=== PATIENT | male | born 1950 | race Caucasian/White ===

== ENCOUNTER 2017-11-20 01:28 | Emergency (ER) | payer MEDICARE, BC ==
[~2017-11-20] VITALS: Ht 175.3 cm; Wt 103.0 kg
[~2017-11-20 01:28] MED LIST: ACE3 PO; AMOX-556 PO; ARTHRITIS MED; CELE-1 PO; CEP500 PO; CHOL10005 PO; CIPR-344 PO; DEXL60CA6 PO; DOCU100T13 PO; ESOM20CA31; ESOM20CA31 PO; GLUC-198 PO; HYDR-3087 PO; HYDR-385 PO; HYDR-6018 RC; KET10 PO; LANS30CA63 PO; LANS30TA12 PO; LEVO-85 PO; LEVO50TA86 PO; LEVO75TA68 PO; LEVO75TA76; LOR5/325 PO; MAGN400C PO; MAGN400T36 PO; MELO-149; MELO-150 PO; MELO-205 PO; MELO-207 PO; METR-160 PO; MULT-1104; MULT-977 PO; MULT1CAP59 PO; OXYC-865 PO; PNEI IJ; PNEU0.5D3 IM; POLY17PO25 PO; PRED-1 PO; PREVPACPT PO; RANI-375 PO; SILD100T59 PO; TADA20TA33 PO; TRA50 PO; TRAM-420 PO; TRIA10.8; WARF2.5T4 PO; ZOST19404 SQ
[2017-11-20] MEDS ORDERED: ONDANSETRON 4 MG/2 ML VIAL IVP ONE (01:45)
[2017-11-20] MEDS ORDERED: fentaNYL CITR 100 MCG/2 ML AMP IVP ONE (01:45)
[2017-11-20] MEDS ORDERED: AMOX-559 PO (01:50)
[2017-11-20] MEDS ORDERED: IOPAMIDOL 76% 75 ML INFUS BTL 75 ML ONE (01:55)
[2017-11-20] MEDS ORDERED: NS 0.9% ONE (01:55)
--- NOTE | 2017-11-20 02:14 | ER Report ---
History and Physical Time Seen By MD: 02:10 Hx. of Stated Complaint: PATIENT HAS HAD A FISTULA FOR A COUPLE YEARS; FOR THE PAST TWO WEEKS IT HAS BEEN BOTHERING THE PATIENT AND HAS BEEN OOZING AND IS PAINFUL HPI/ROS CHIEF COMPLAINT: Pain in my butt HISTORY OF PRESENT ILLNESS: 61-year-old with colorectal cancer presents with pain and discomfort in the gluteal cleft ongoing over 3 weeks has tried multiple rounds of antibiotics most recently on Augmentin does not seem to be resolving increased pain and drainage today prompting ED visit location is superior aspect of gluteal cleft. No prior Pilon deal cyst. This told previously by GI specialist this may be a fistula. Surgical options have been discussed but currently managed nonsurgically. Drainage has been clear fluid. No fevers chills nausea or vomiting or diarrhea. Stools have been loose and irregular due to being on multiple rounds of antibiotics per patient report. No other concerns or complaints today. REVIEW OF SYSTEMS: Constitutional: No fever, no chills. Eyes: No discharge. ENT: No sore throat. Cardiovascular: No chest pain, no palpitations. Respiratory: No cough, no shortness of breath. Gastrointestinal: No abdominal pain, no vomiting. Genitourinary: No hematuria. Musculoskeletal: No back pain. Skin: No rashes. Neurological: No headache. Allergies: Uncoded Allergies: HAYFEVER (Allergy, Mild, UNKNOWN, 03/27/12) Home Meds Active Scripts Metronidazole (METRONIDAZOLE) 500 Mg Tablet, 500 MG PO TID, #15 TAB Prov:AYUSH MORALES MD 11/07/17 Sildenafil Citrate (VIAGRA) 100 Mg Tablet, 100 MG PO QDAY Y for sex, #9 TAB 4 Refills Prov:AYUSH MORALES MD 05/31/17 Lansoprazole (PREVACID) 30 Mg Tab.rap, 30 MG PO QAM, #90 TAB 4 Refills Prov:AYUSH MORALES MD 05/11/17 Levothyroxine Sodium (LEVOTHYROXINE SODIUM) 50 Mcg Tablet, 1 TAB PO QDAY, #90 TAB 4 Refills Prov:AYUSH MORALES MD 04/03/17 Meloxicam (MELOXICAM) 15 Mg Tablet, 1 TAB PO QDAY, #90 TAB 4 Refills Prov:AYUSH MORALES MD 4/7/17 Reported Medications Amoxicillin/Pot Clav 875-125 Mg Tab (AUGMENTIN 875-125 TABLET) 1 Each Tablet, 1 TAB PO Q12H, TAB 11/20/17 Ranitidine Hcl (ZANTAC 75) 75 Mg Tablet, 1 TAB PO QHS 04/03/17 Magnesium Oxide (MAGNESIUM OXIDE) 400 Mg Tablet, 400 MG PO QDAY 09/21/16 Polyethylene Glycol 3350 (MIRALAX) 17 Gm Powd.pack, 17 GM PO QDAY Y for constipation, PKT 08/17/16 Docusate Sodium (DOCUSATE SODIUM) 100 Mg Tablet, 100 MG PO QDAY 08/11/16 Multivitamin (MULTIVITAMINS) 1 Each Capsule, 1 EACH PO QDAY, CAPSULE 03/17/16 Cholecalciferol (Vitamin D3) (VITAMIN D3) 1,000 Unit Tablet, 1 TAB PO QDAY 11/03/14 Discontinued Scripts Ciprofloxacin Hcl (CIPRO) 500 Mg Tablet, 500 MG PO BID, #10 TAB Prov:AYUSH MORALES MD 11/07/17 Tramadol Hcl (TRAMADOL HCL) 50 Mg Tablet, 50 MG PO BID Y for pain, #20 TAB Prov:AYUSH MORALES MD 05/10/17 Hx Smoking: No Smoking Status: Never Smoker Hx Substance Use Disorder: No Hx Alcohol Use: No Constitutional Vital Sign - Last 24 Hours 11/20/17 11/20/17 11/20/17 11/20/17 01:34 01:35 01:58 02:10 Temp 98.7 Pulse 86 84 Resp 18 B/P (MAP) 118/59 118/59 (78) 89/47 (61) Pulse Ox 92 93 O2 Delivery Room Air 11/20/17 11/20/17 11/20/17 11/20/17 02:28 02:30 02:58 03:00 Pulse 69 66 B/P (MAP) 107/59 (75) 121/70 (87) Pulse Ox 95 96 11/20/17 03:05 O2 Flow Rate 2.0 Physical Exam General Appearance: The patient is alert, has no immediate need for airway protection and no signs of toxicity. No acute distress Eyes: Pupils equal and round no pallor or injection. ENT, Mouth: Mucous membranes are moist. Respiratory: There are no retractions, lungs are clear to auscultation. Cardiovascular: Regular rate and rhythm. Hours gallops or rubs Gastrointestinal: Abdomen is soft and non tender, no masses, bowel sounds normal. Neurological: Grossly normal Skin: Warm and dry, no rashes. Superior gluteal cleft has read appearance with tenderness and minimal fluctuance. Serosanguineous drainage is apparent. Musculoskeletal: Neck is supple non tender. Extremities are nontender, nonswollen and have full range of motion. Edema DIFFERENTIAL DIAGNOSIS: After history and physical exam differential diagnosis was considered for pilonidal cyst pilonidal cyst abscess colorectal cancer related fistula no signs of sepsis or other serious process Medical Decision Making Data Points Result Diagram: 11/20/1720811/20/17 020 Laboratory Hematology Test 11/20/17 02:09 Red Blood Count 4.74 M/uL (4.00-5.60) Mean Corpuscular Volume 88.1 fL (80.0-96.0) Mean Corpuscular Hemoglobin 29.7 pg (26.0-33.0) Mean Corpuscular Hemoglobin Concent 33.7 g/dL (32.0-36.0) Red Cell Distribution Width 13.9 % (11.5-14.5) Mean Platelet Volume 8.2 fL (7.2-11.1) Neutrophils (%) (Auto) 67.2 % (39.4-72.5) Lymphocytes (%) (Auto) 17.7 % (17.6-49.6) Monocytes (%) (Auto) 11.5 % (4.1-12.4) Eosinophils (%) (Auto) 3.0 % (0.4-6.7) Basophils (%) (Auto) 0.6 % (0.3-1.4) Nucleated RBC Relative Count (auto) 0.0 /100WBC Neutrophils # (Auto) 3.6 K/uL (2.0-7.4) Lymphocytes # (Auto) 0.9 K/uL (1.3-3.6) Monocytes # (Auto) 0.6 K/uL (0.3-1.0) Eosinophils # (Auto) 0.2 K/uL (0.0-0.5) Basophils # (Auto) 0.0 K/uL (0.0-0.1) Nucleated RBC Absolute Count (auto) 0.00 K/uL Sodium Level 137 mmol/L (137-145) Potassium Level 4.0 mmol/L (3.5-5.0) Chloride Level 102 mmol/L (98-107) Carbon Dioxide Level 26 mmol/L (22-30) Blood Urea Nitrogen 18 mg/dl (9-21) Creatinine 1.00 mg/dl (0.66-1.25) Glomerular Filtration Rate Calc > 60.0 Random Glucose 114 mg/dl (75-110) Calcium Level 8.5 mg/dl (8.4-10.2) C-Reactive Protein 2.2 mg/dl (<1.0) Chemistry Test 11/20/17 02:09 White Blood Count 5.3 k/uL (4.5-11.0) Red Blood Count 4.74 M/uL (4.00-5.60) Hemoglobin 14.1 g/dL (14.0-18.0) Hematocrit 41.7 % (42.0-52.0) Mean Corpuscular Volume 88.1 fL (80.0-96.0) Mean Corpuscular Hemoglobin 29.7 pg (26.0-33.0) Mean Corpuscular Hemoglobin Concent 33.7 g/dL (32.0-36.0) Red Cell Distribution Width 13.9 % (11.5-14.5) Platelet Count 221 K/uL (150-450) Mean Platelet Volume 8.2 fL (7.2-11.1) Neutrophils (%) (Auto) 67.2 % (39.4-72.5) Lymphocytes (%) (Auto) 17.7 % (17.6-49.6) Monocytes (%) (Auto) 11.5 % (4.1-12.4) Eosinophils (%) (Auto) 3.0 % (0.4-6.7) Basophils (%) (Auto) 0.6 % (0.3-1.4) Nucleated RBC Relative Count (auto) 0.0 /100WBC Neutrophils # (Auto) 3.6 K/uL (2.0-7.4) Lymphocytes # (Auto) 0.9 K/uL (1.3-3.6) Monocytes # (Auto) 0.6 K/uL (0.3-1.0) Eosinophils # (Auto) 0.2 K/uL (0.0-0.5) Basophils # (Auto) 0.0 K/uL (0.0-0.1) Nucleated RBC Absolute Count (auto) 0.00 K/uL Glomerular Filtration Rate Calc > 60.0 Calcium Level 8.5 mg/dl (8.4-10.2) C-Reactive Protein 2.2 mg/dl (<1.0) ED Course/Re-evaluation ED Course Plan of care was agreed upon prior to orders placed. Re-evaluation 11/20/2017 3:18:26 am patient doing fine no concerns or complaints radiologist called back no drainable fluid collection possible fistula with overlying inflammatory skin changes we'll continue current course of antibiotics [augmentin] add topical hydrocortisone; pt states has tramadol left over and will use for pain; and follow-up with Dr. Venegas for further evaluation and treatment Decision to Disposition Date: Nov 20, 2017 Decision to Disposition Time: 03:18 Depart Departure Latest Vital Signs Vital Signs Date Time Temp Pulse Resp B/P (MAP) Pulse Ox O2 Delivery O2 Flow Rate FiO2 11/20/17 03:05 2.0 11/20/17 03:00 121/70 (87) 11/20/17 02:58 66 96 11/20/17 01:34 98.7 18 Room Air Impression: Primary Impression: Skin infection Condition: Improved Disposition: HOME OR SELF-CARE Referrals: AYUSH MORALES MD (PCP) BRIDGET BRISENO MD New Scripts Hydrocortisone 2.5% Oint (HYDROCORTISONE 2.5% OINT) 453.6 Gm Oint...g. 453.6 GM TP BID for 10 Days, #1 TUBE Prov: BILL BULLOCK MD 11/20/17 Patient Instructions: Hydrocortisone (On the skin) BILL BULLOCK MD Nov 20, 2017 02:14
[2017-11-20 02:19] LABS: PLATELET COUNT, AUTOMATED 221 K/uL (150-450)
--- NOTE | 2017-11-20 03:20 | RADIOLOGY IMAGING REPORT ---
FACILITY: [facility] [place]IENT NAME: Dustin Tran : 1950 MR: [id number] V: [id number] EXAM DATE: ORDERING PHYSICIAN: BILL BULLOCK TECHNOLOGIST: Location: [facility] - [place] Patient: Dustin Tran : 1950 Visit/Account:[id number] Date of Sevice: 11/20/2017 ABDOMEN/PELVIS WITH CONTRAST COMPARISONS: CT of the abdomen and pelvis with without contrast dated August 16, 2016 ADDITIONAL PERTINENT HISTORY: Colorectal cancer with possible pilonidal cyst versus fistula TECHNIQUE: Multiple axial images were obtained from the lung bases through the lesser trochanters bef ore and after the IV administration of IV contrast. One of the following dose optimization technique s was utilized in the performance of this exam: Automated exposure control; adjustment of the mA and/ or kV according to the patient's size; or use of an iterative reconstruction technique. Specific de tails can be referenced in the facility's radiology CT exam operational policy. CONTRAST: 75 ml of Isovue-370 FINDINGS: Lung bases: Negative. Free air and free fluid: None. Liver: Mild biliary ductal dilatation likely related to previous cholecystectomy. Otherwise negative Spleen: Negative. Kidneys, ureters and urinary bladder: Continued findings of a low-attenuation lesion involving the up per pole of the right kidney consistent with a simple cyst. Adrenal glands: Negative. Pancreas: Negative. Gallbladder: Surgically absent. Bowel and mesentery: Postoperative changes involving the rectosigmoid colon. Continued findings of so ft tissue attenuation with foci of air posterior to the rectum within the presacral space. This has i ncreased in prominence since previous exam. No loculated fluid collection is noted. No bowel obstruct ion.. Pelvic contents: Negative Lymph node assessment: Negative. Retroperitoneum: Negative. Abdominal vasculature: Mild calcified atherosclerotic plaque involving the abdominal aorta. Surrounding soft tissues: Irregularity along the anterior abdominal wall just to the left of midline which may have represented a previous site of an ostomy. There is skin thickening and subcutaneous so ft tissue stranding in the right aspect of the gluteal cleft extending down into the presacral space. Osseous structures: Patient status post previous total left hip arthroplasty. Spondylitic change invo lving the lumbar spine. No acute appearing bony abnormalities. IMPRESSION: 1. Soft tissue fullness in the presacral space immediately adjacent to the posterior wall of the rect um with inflammatory changes extending into the right gluteal cleft. In addition within the presacral soft tissue fullness of there are foci of air. Findings certainly could represent underlying fistula with communication to the subcutaneous soft tissues. 2. No drainable abscess in this region. 3. Postoperative changes as discussed above. 4. No other acute intra-abdominal or intrapelvic process. Results were discussed with BILL BULLOCK at 11/20/2017 3:15 AM. Report Dictated By: Luis Alberto Hardin MD at 11/20/2017 3:05 AM Report E-Signed By: Luis Alberto Hardin MD at 11/20/2017 3:15 AM WSN:[id number]
[2017-11-20] MEDS ORDERED: HYDR453.8 TP (03:21)
[2017-11-20 03:23] VITALS: BP 120/72
== END 2017-11-20 03:29 | disposition home or self-care (01) ==
LOC: ER 01:58
DX: L08.89 Other specified local infections of the skin and subcutaneous tissue (principal)
CPT/HCPCS: 74177; 85025; 86140; 96374; 96375; 99284; J2405; J3010; Q9967; 82310; 82374; 82435; 82565; 82947; 84132; 84295; 84520

== ENCOUNTER 2017-11-29 13:35 | Outpatient (RCR) | payer MEDICARE, BC ==
[~2017-11-29 13:35] MED LIST changes: +AMOX-559 PO; +HYDR453.8 TP
[2017-11-30] MEDS ORDERED: GADOBENATE 529MG/1ML 15ML VIAL IVP ONE (08:10)
[2017-11-30] MEDS ORDERED: NS(*) 0.9% 10 ML VIAL 40 ML ONE (08:10)
--- NOTE | 2017-12-01 17:34 | RADIOLOGY IMAGING REPORT ---
FACILITY: PATIENT NAME: Dustin Tran : 1950 MR: [id number] V: [id number] EXAM DATE: ORDERING PHYSICIAN: [facility] [place] TECHNOLOGIST: Location: [facility] Patient: Dustin Tran : 1950 Visit/Account:[id number] Date of Sevice: 11/30/2017 PELVIS W W/O CONTRAST Provided history: Rectal fistula Additional pertinent history: none TECHNIQUE: Multiplanar multisequence MRI of the pelvis was performed without and with intravenous c ontrast Contrast dose: 15 mL of MultiHance. Additional focused sequences: none COMPARISON STUDIES: MRI 03/30/[address] 11/20/07 FINDINGS: Genitourinary: Negative Bowel/peritoneum/mesenteries: Reidentified is moderate circumferential thickening of the lower rectum . There is localized wall thickening from 5:00 to 7:00 as seen from below, 5.5 cm above the verge po inting toward the sacral concavity. There is moderately intense enhancement of the wall surrounding this focal posterior protrusion and there is abnormal enhancement along a sinus tract that extends wi thin the substance of the piriformis muscle caudally to the level of the tip of the coccyx. At that level, there is moderately intense focal soft tissue enhancement in the intergluteal cleft and there is moderate secondary edema in the adjacent gluteus abisai muscles. Another tract extends into the right piriformis muscle, also extending to the tip of the coccyx. Marrow appears to be preserved in the tip of the coccyx. No clear evidence of osteomyelitis. Vessels: negative Musculoskeletal / body wall: Left hip prosthesis. Moderate narrowing of the central canal lower lumb ar spine, not further assessed. Lymph nodes: negative IMPRESSION: There are 2 fistulae/sinus tracts arising from the posterior rectal wall as fully defined above that point caudally within the substance of the piriformis muscles extending to the intragluteal fold at t he level of the tip of the coccyx. There is no clear evidence of osteomyelitis on this exam. Report Dictated By: Max De La Cruz MD at 12/01/2017 5:15 PM Report E-Signed By: Max De La Cruz MD at 12/01/2017 5:30 PM WSN:[id number]
== END 2017-11-30 18:00 | disposition home or self-care (01) ==
LOC: MRI 13:35
PROVIDERS: ATTEND Colon & Rectal Surgery
DX: K63.2 Fistula of intestine (principal); K60.5 Anorectal fistula
CPT/HCPCS: 36415; 72197; 82565; 84520; A9577

== ENCOUNTER → 2017-12-25 | Outpatient (CLI) | payer MEDICARE, BC ==
--- NOTE | 2017-12-25 10:45 | RADIOLOGY IMAGING REPORT ---
FACILITY: [facility] - [place] PATIENT NAME: Dustin Tran : 1950 MR: [id number] V: [id number] EXAM DATE: ORDERING PHYSICIAN: FERNANDO DENTON TECHNOLOGIST: Location: [facility] [place] Patient: Dustin Tran : 1950 Visit/Account:[id number] Date of Sevice: 12/25/2017 Exam type: BARIUM ENEMA (BE) History: Rectal anastomosis with fistula Comparison: CT abdomen pelvis November 20, 2017. Findings: A small amount of Gastrografin was instilled into the colon via the rectum utilizing gravity. Gastro grafin immediately flowed from the posterior aspect of the rectum adjacent to a surgical clip at the anastomosis and tract in the gluteal soft tissues towards the skin. The entire colon was not evaluat ed. Incidentally noted is a large amount of fecal material throughout colon on the pulmonary container filler f ilm.. The fluoroscopy dose area product was 759.46 micro-Jordan per meter squared IMPRESSION: 1. There is immediate leakage of Gastrografin from the posterior aspect of the rectum adjacent to th e anastomosis which tract posteriorly into the gluteal soft tissues Report Dictated By: Nuris Meyers MD at 12/25/2017 10:31 AM Report E-Signed By: Nuris Meyers MD at 12/25/2017 10:42 AM WSN:[email or web address]
== END ==
LOC: RAD 09:58
PROVIDERS: ATTEND Colon & Rectal Surgery
DX: K60.5 Anorectal fistula (principal)
CPT/HCPCS: 74270

== ENCOUNTER 2018-01-25 03:56 | Day surgery (SDC) | payer MEDICARE, BC ==
[~2018-01-25] VITALS: Ht 175.3 cm; Wt 102.1 kg
[2018-01-25] MEDS ORDERED: LIDOCAINE MPF 1% 5 ML VIAL ONE (07:00)
[2018-01-25] MEDS ORDERED: PROPOFOL EMUL(*) 10MG/ML 20 ML 40 ML ONE (07:00)
[2018-01-25] MEDS ORDERED: LIDOCAINE/SOD BICARB 8.4% SYR ID ONE (07:40)
[2018-01-25] MEDS ORDERED: NORMOSOL R SOLN(*) 1000 ML BAG 1,000 ML IV PRN (07:40)
[2018-01-25 08:06] VITALS: BP 131/83
--- NOTE | 2018-01-25 08:10 | Post Operative Progress Note ---
Post Operative Progress Note Date: Jan 25, 2018 Time: 08:38 Surgeon: sunshine Anesthesia: dr weber Pre-Op Diagnosis: rectocutaneous fistula Post-Op Diagnosis: fistula opening at 8 cm and stiff stenotic segment up to 25 cm then normal colon Procedure(s): colonoscopy BRIDGET BRISENO MD Jan 25, 2018 08:10
[2018-01-25 08:38] VITALS: BP 108/64
--- NOTE | 2018-01-25 08:40 | Short(Outpt) Discharge Summary ---
Discharge Summary Reason for Hosp/Final Diag: (1) Rectal fistula Status: Acute Hospital Course & Plan: fistula opening at 8 cm and stenotic segment of colon up to 25 cm then normal colon Departure Discharge to: Home Discharge Instructions Home Meds Active Scripts Hydrocortisone 2.5% Oint (HYDROCORTISONE 2.5% OINT) 453.6 Gm Oint...g., 453.6 GM TP BID for 10 Days, #1 TUBE Prov:BILL BULLOCK MD 11/20/17 Sildenafil Citrate (VIAGRA) 100 Mg Tablet, 100 MG PO QDAY Y for sex, #9 TAB 4 Refills Prov:AYUSH MORALES MD 05/31/17 Lansoprazole (PREVACID) 30 Mg Tab.rap.dr, 30 MG PO QAM, #90 TAB 4 Refills Prov:AYUSH MORALES MD 05/11/17 Levothyroxine Sodium (LEVOTHYROXINE SODIUM) 50 Mcg Tablet, 1 TAB PO QDAY, #90 TAB 4 Refills Prov:AYUSH MORALES MD 04/03/17 Meloxicam (MELOXICAM) 15 Mg Tablet, 1 TAB PO QDAY, #90 TAB 4 Refills Prov:AYUSH MORALES MD 01/20/17 Reported Medications Ranitidine Hcl (ZANTAC 75) 75 Mg Tablet, 1 TAB PO QHS 04/03/17 Magnesium Oxide (MAGNESIUM OXIDE) 400 Mg Tablet, 400 MG PO QDAY 09/21/16 Polyethylene Glycol 3350 (MIRALAX) 17 Gm Powd.pack, 17 GM PO QDAY Y for constipation, PKT 08/17/16 Multivitamin (MULTIVITAMINS) 1 Each Capsule, 1 EACH PO QDAY, CAPSULE 03/17/16 Cholecalciferol (Vitamin D3) (VITAMIN D3) 1,000 Unit Tablet, 1 TAB PO QDAY 11/03/14 Discontinued Reported Medications Amoxicillin/Pot Clav 875-125 Mg Tab (AUGMENTIN 875-125 TABLET) 1 Each Tablet, 1 TAB PO Q12H, TAB 11/20/17 Docusate Sodium (DOCUSATE SODIUM) 100 Mg Tablet, 100 MG PO QDAY 08/11/16 Discontinued Scripts Metronidazole (METRONIDAZOLE) 500 Mg Tablet, 500 MG PO TID, #15 TAB Prov:AYUSH MORALES MD 11/07/17 Diet: Regular Activity: As Tolerated NACHTIGAL,BRIDGET MD Jan 25, 2018 08:40
[2018-01-25 09:07] VITALS: BP 103/53
[2018-01-25 09:24] VITALS: BP 127/76
[2018-01-25 09:25] VITALS: BP 133/72
--- NOTE | 2018-01-25 16:58 | OPERATIVE REPORT 1 ---
EVENT DATE: January 25, 2018 SURGEON: Rubin Hartman MD ANESTHESIOLOGIST: Toño Villafuerte MD ANESTHESIA: Sedation. PREOPERATIVE DIAGNOSIS Rectocutaneous fistula. POSTOPERATIVE DIAGNOSIS Rectocutaneous fistula. PROCEDURE PERFORMED Colonoscopy. DESCRIPTION OF PROCEDURE Patient was placed in the left lateral decubitus position and given intravenous sedation. Perianal examination revealed a fistula with granulation tissue in the midline posterior to the anal opening. There was some feculent material leaking out of it. The flexible colonoscope was inserted, and 7 cm up, he had a large crater with granulation tissue and the obvious site of the fistula. We were able to go by this and complete the colonoscopy. Patient had a poor prep, a lot of thick liquid stool with some particulate matter, making complete visualization impossible. However, we washed and irrigated out the cecum pretty well. We had a good look at that. No abnormalities were noted in the cecum, right colon. Transverse colon was seen pretty well. The splenic flexure was a little more difficult to see because of the liquid stool present. We suctioned as much as we could, cleared it out. I could not identify any abnormalities. The descending colon appeared to be normal. At 25 cm, he had a stenotic segment that extended about 10 cm, ending with the fistula opening. The lining of this mucosa appeared to be normal, but the bowel did not distend. It was a stiff tube from 25 cm to the fistula, and then the distal rectum was normal. The fistula opening to the anal verge was around 8 cm. [facility]
[2018-01-30] MEDS ORDERED: PNEI IJ (11:04)
== END 2018-01-25 09:43 | disposition home or self-care (01) ==
LOC: OR 03:56
PROVIDERS: ATTEND Surgery
DX: K60.4 Rectal fistula (principal)
CPT/HCPCS: 00811; 45378; J2001; J2704

== ENCOUNTER → 2018-01-30 | Outpatient (CLI) | payer MEDICARE, BC ==
[2018-01-30 11:40] LABS: PLATELET COUNT, AUTOMATED 230 K/uL (150-450)
--- NOTE | 2018-01-30 12:07 | EKG ---
FACILITY: [facility] PATIENT NAME: BREANNE CONNOR : [id number] MR: [id number] V: [id number] EXAM DATE: ORDERING PHYSICIAN: AYUSH MORALES TECHNOLOGIST: MARIBEL Blount Reason : PREOP Blood Pressure : / mmHG Vent. Rate : 080 BPM Atrial Rate : 080 BPM P-R Int : 156 ms QRS Dur : 100 ms QT Int : 396 ms P-R-T Axes : 074 000 037 degrees QTc Int : 456 ms Normal sinus rhythm Normal ECG When compared with ECG of 30-AUG-2016 07:35, No significant change was found Referred By: Confirmed By:
== END ==
LOC: LAB 11:09
PROVIDERS: ATTEND Internal Medicine
DX: Z01.818 Encounter for other preprocedural examination (principal); C18.9 Malignant neoplasm of colon, unspecified; E03.9 Hypothyroidism, unspecified; I10 Essential (primary) hypertension; K60.4 Rectal fistula; R73.9 Hyperglycemia, unspecified
CPT/HCPCS: 36415; 81001; 82040; 82247; 82310; 82374; 82435; 82565; 82947; 83036; 83735; 84075; 84132; 84155; 84295; 84443; 84450; 84460; 84520; 85025

== ENCOUNTER → 2018-10-17 | Outpatient (CLI) | payer MEDICARE, BC ==
[~2018-10-17] MED LIST changes: -METR-160 PO; +METR500T54 PO
[2018-10-17 15:33] LABS: PLATELET COUNT, AUTOMATED 269 K/uL (150-450)
--- NOTE | 2018-10-18 17:00 | EKG ---
[facility] PATIENT NAME: BREANNE CONNOR : [id number] MR: [id number] V: [id number] EXAM DATE: ORDERING PHYSICIAN: AYUSH MORALES TECHNOLOGIST: MIKEY Test Reason : PRE OP Blood Pressure : / mmHG Vent. Rate : 096 BPM Atrial Rate : 096 BPM P-R Int : 146 ms QRS Dur : 094 ms QT Int : 360 ms P-R-T Axes : 070 -09 048 degrees QTc Int : 454 ms Normal sinus rhythm Normal ECG No previous ECGs available Referred By: Confirmed By:
== END ==
LOC: LAB 14:42
PROVIDERS: ATTEND Internal Medicine
DX: Z01.818 Encounter for other preprocedural examination (principal); C18.9 Malignant neoplasm of colon, unspecified; E03.9 Hypothyroidism, unspecified; R35.1 Nocturia
CPT/HCPCS: 36415; 81001; 82040; 82247; 82310; 82374; 82435; 82565; 82947; 84075; 84132; 84153; 84155; 84295; 84439; 84443; 84450; 84460; 84520; 85025; 87088

== ENCOUNTER → 2019-04-30 | Outpatient (CLI) | payer MEDICARE, BC ==
[~2019-04-30] MED LIST changes: +CIPR-214 PO; +METR500T15 PO; -METR500T54 PO; -RANI-375 PO; +RANI-886 PO
[2019-04-30 09:07] LABS: PLATELET COUNT, AUTOMATED 179 K/uL (150-450)
== END ==
LOC: LAB 08:40
PROVIDERS: ATTEND Internal Medicine
DX: Z01.818 Encounter for other preprocedural examination (principal); C18.9 Malignant neoplasm of colon, unspecified; M19.90 Unspecified osteoarthritis, unspecified site; R73.9 Hyperglycemia, unspecified; E03.9 Hypothyroidism, unspecified
CPT/HCPCS: 36415; 81001; 82040; 82247; 82310; 82374; 82435; 82565; 82947; 84075; 84132; 84155; 84295; 84443; 84450; 84460; 84520; 85025

== ENCOUNTER 2019-05-27 04:05 | Observation (INO) | payer MEDICARE, BC ==
[2019-05-26 15:41] LABS: INR 1.04
[~2019-05-27] VITALS: Ht 175.3 cm; Wt 110.7 kg
[2019-05-27] VITALS (11 sets, daily range): BP systolic 98–144; BP diastolic 64–79
[~2019-05-27 04:05] MED LIST changes: +DOCU-416 PO; +FERR324T16 PO
[2019-05-27] MEDS ORDERED: ROPIVACAINE 0.2% 400 MG/200ML 250 ML CONINFUS ONE (06:15)
[2019-05-27] MEDS ORDERED: PREGABALIN 150 MG CAPSULE PO ONE (06:15)
[2019-05-27] MEDS ORDERED: MIDAZOLAM 2 MG/2 ML VIAL IVP PRN (06:15)
[2019-05-27] MEDS ORDERED: NORMOSOL R SOLN(*) 1000 ML BAG 1,000 ML IV PRN ×2 (06:15→10:40)
[2019-05-27] MEDS ORDERED: LIDOCAINE/SOD BICARB 8.4% SYR ID ONE (06:15)
[2019-05-27] MEDS ORDERED: CELECOXIB 200 MG CAP PO ONE (06:15)
[2019-05-27] MEDS ORDERED: ACETAMINOPHEN 500 MG TAB PO ONE (06:15)
[2019-05-27] MEDS ORDERED: ROPIVACAINE 0.5% 20 ML VIAL ONE ×2 (07:00→07:29)
[2019-05-27] MEDS ORDERED: ceFAZolin(*) 2GM/D5W 50ML 50 ML IVPB ONE (07:15)
[2019-05-27] MEDS ORDERED: TRANEXAMIC AC 1000 MG/10ML SDV 1,000 MG in DEXTROSE 5% 50 ML BAG 50 ML IV ONE (07:15)
[2019-05-27] MEDS ORDERED: ROPIVACAINE/EPI/CLONIDINE/KET 50 ML SYRINGE INJ ONE (07:15)
[2019-05-27] MEDS ORDERED: ONDANSETRON 4 MG/2 ML VIAL ONE (07:29)
[2019-05-27] MEDS ORDERED: PROPOFOL EMUL(*) 10MG/ML 20 ML 20 ML ONE (07:29)
[2019-05-27] MEDS ORDERED: DEXAMETHASONE SOD PHOS 10MG/ML ONE (07:29)
[2019-05-27] MEDS ORDERED: fentaNYL CITR 100 MCG/2 ML AMP ONE ×2 (07:29→09:48)
[2019-05-27] MEDS ORDERED: HYDROmorphone HCL 2 MG/ML SDV ONE (08:04)
[2019-05-27] MEDS ORDERED: ZOLPIDEM TARTRATE 5 MG TAB PO PRN (10:40)
[2019-05-27] MEDS ORDERED: PROMETHAZINE 25 MG/ML 1 ML AMP IVP PRN (10:40)
[2019-05-27] MEDS ORDERED: FLUSH 10 ML SYR IVP PRN (10:40)
[2019-05-27] MEDS ORDERED: BISACODYL 10 MG SUPP PR PRN (10:40)
[2019-05-27] MEDS ORDERED: oxyCODONE HCL 5 MG CAP PO PRN (10:40)
[2019-05-27] MEDS ORDERED: MORPHINE 4 MG/ML SDV IVP PRN (10:40)
[2019-05-27] MEDS ORDERED: ONDANSETRON 4 MG/2 ML VIAL IVP PRN (10:40)
[2019-05-27] MEDS ORDERED: MAGNESIUM HYDROXIDE* 30ML UDCP PO PRN (10:40)
--- NOTE | 2019-05-27 10:43 | RADIOLOGY IMAGING REPORT ---
FACILITY: [facility] - [place] PATIENT NAME: Dustin Tran : 1950 MR: [id number] V: [id number] EXAM DATE: ORDERING PHYSICIAN: LACEY WAYNE TECHNOLOGIST: Location: [facility] - [place] Patient: Dustin Tran : 1950 Visit/Account:[id number] Date of Sevice: 05/27/2019 Exam type: KNEE LIMITED LEFT History: left total knee Comparison: None. Findings: Two views of the left knee demonstrate a left knee arthroplasty in good anatomic alignment. Soft tis [employer] projects over the anterior aspect this postoperative knee IMPRESSION: 1. As above Report Dictated By: Nuris Meyers MD at 05/27/2019 10:27 AM Report E-Signed By: Nuris Meyers MD at 05/27/2019 10:27 AM WSN:[id number]
[2019-05-27] MEDS: IBUPROFEN 200 MG TAB PO SCH ×2 (12:54→17:27)
--- NOTE | 2019-05-27 13:42 | OPERATIVE REPORT 1 ---
EVENT DATE: May 27, 2019 SURGEON: Christo Qureshi MD ANESTHESIOLOGIST: Nakul Vernon MD ANESTHESIA: Left adductor canal block with indwelling catheter followed by general anesthesia. We also utilized 50 cc of our standard Toradol/ropivacaine cocktail. POLE SHAVER HELPER: KAREEN Garcia PREOPERATIVE DIAGNOSIS Left knee degenerative joint disease with deformity in varus alignment and contractures. POSTOPERATIVE DIAGNOSIS Left knee degenerative joint disease with deformity in varus alignment and contractures. PROCEDURE PERFORMED Left total knee arthroplasty. IMPLANTS MicroPort medial pivot CS system with a 6+ tibia, 12 mm CS insert, 5 femur, 32 x 8 symmetric patella, femur cut 6 degrees valgus, 10 mm. We also utilized two packages of [employer] Blue cement and ZipLine Wound Closure System. SPECIMENS None. COMPLICATIONS None. BLOOD LOSS Less than 200 cc. OPERATION The patient was brought to the OR after receiving appropriate preoperative antibiotic and Dr. Vernon performed left adductor canal block with indwelling catheter followed by general anesthesia. Left thigh tourniquet was placed but was not utilized. The left lower extremity was prepped and draped in the usual sterile fashion. Midline incision was made followed by a medial parapatellar arthrotomy. Hemostasis was achieved by Bovie as we went. Fat pad was excised, patella released and we dissected subperiosteally along the medial tibial plateau to the level of the semimembranosus insertion. We noted eburnation in the medial compartment and patellofemoral compartment, grade 3 changes in the lateral compartment. We encountered significant osteophytes as we went and removed these as we sent. The knee was brought up into flexion. The PCL was released subperiosteally by Bovie as the ACL was absent. The remaining articular cartilage was removed from the lateral femoral condyle by sagittal saw. Step-cut drill was utilized to broach the femoral canal. We placed the intramedullary femoral guide and set our cutting block up at 6-degree valgus, 10 mm, and made our cut. Care was taken to protect the soft tissues throughout the procedure. 3-degree external rotation and sizing guide was placed, referencing appropriately off the anterior flange, epicondyles and posterior condyles, and we sized the femur to a #5 and drilled their holes. Four-in-one cutting block was placed, followed by Z retractors and we made our four cuts. Tibia was brought partially anteriorly on the femur with appropriate retractors but secondary to posterior osteophytes we were not completely dislocated. However, we were able to utilize the step-cut drill to broach the tibial canal, placed our intramedullary guide, set this up to reference 4 mm off the medial tibial plateau. We set this up for rotation, depth cut, and utilized the alignment tools throughout. We then protected the soft tissues and made our tibial cut. This was sized to a 6+. The stump of the PCL, medial and lateral meniscus were removed by Bovie. Osteophytes were removed on the tibial plateau and femur with rongeur followed by posterior osteophyte removal on the femur with curved osteotome, then elevation of the capsule, particularly laterally with Velásquez elevator. There was laxity secondary to deformity medially, though we were able to achieve balance as we went. We then placed our tibial baseplate, referencing from the previous rotation, pinned this into place, placed a 10 mm insert in the femur and then we went back and placed a 12 mm insert and then our femur. We were able to achieve full extension. Flexion of approximately 120 degrees, limited only by body habitus. At 90 degrees, we had acceptable endpoint on anterior drawer. We did not sublux. The knee was brought in full extension. Patella was sized to 20 mm. We utilized the 6 mm cutting guide to cut this down to 14 mm. We then placed our guide and sizer and inferiorly medially drilled the peg holes for a 32 x 8 symmetric patella. This was placed. The knee was brought up into flexion. Peg holes were drilled and placed for the femur. Trochlear chip cut and placed. Again, we had the aforementioned range of motion and stability. The patella tracked well. The femur, tibial insert and patella were removed to be brought anterior on the femur with appropriate retractors to set up our keyhole guide, which was cut, reamed and punched. Instrumentation was then removed. Bone plug placed in the distal femur. We copiously irrigated by pulse lavage while we mixed two packages of [employer] blue cement. We injected 10 cc of our cocktail into the posterior capsule and placed the knee in appropriate position and again irrigated and then starting at the tibia this was cemented in placed, followed by our 12 mm CS insert and #5 femur. Excess cement was removed. The knee was brought into full extension with axial compression while we cemented the patella. We then injected the remaining cocktail into the quad mechanism. We irrigated with pulse lavage and then warm water. After 11.5 minutes, the cement had cured. Again, we had the aforementioned range of motion and stability. We then placed the knee at 30 degrees, closed the arthrotomy with #2 Vicryl followed by 2-0 Vicryl for the subcutaneous tissues and then ZipLine Wound Closure System for the skin. Dressing was applied. Patient extubated and taken to recovery in stable condition. Hospitalist team to be consulted for medical management and anticoagulation, PT for rehab. BRI
--- NOTE | 2019-05-27 13:45 | NUR ---
Physical Therapy Impression PT eval complete. Pt completed bed mobility with SBA. CGA to stand at EOB with RW. Pt tolerated standing at EOB x10 minutes in order to empty colostomy and use urinal. CGA to side step to HOB with good tolerance. CPM fit and placed running 0-35 degrees on L) LE. Physical Therapy Goals 1: Pt to complete bed mobility with Gabi 2: pt to complete transfers with SBA and RW 3: pt to ambulate 150' with SBA and RW 4: Pt to asc/desc 4 stairs with railing and CGA 5: Pt to be I) with use of CPM Patient's Goals
--- NOTE | 2019-05-27 15:19 | Hospitalist Consultation ---
History of Present Illness Requesting Physician Dr. Qureshi Reason for Consult Anticoagulation and management of chronic conditions. Chief Complaint L. Knee Replacement History of Present Illness Left Knee Replacement by Dr. Qureshi on 05/27. History positive for Hypothyroidism, GERD, Colon CA. No current cancer at this time. History Problems: (1) Hypothyroidism Status: Acute (2) GERD (gastroesophageal reflux disease) Home Meds Active Scripts Meloxicam (MELOXICAM) 15 Mg Tablet, 1 TAB PO QDAY, #90 TAB 3 Refills Prov:AYUSH MORALES MD 05/17/19 Lansoprazole (PREVACID) 30 Mg Tab.rap, 30 MG PO QAM, #90 TAB 3 Refills Prov:AYUSH MORALES MD 05/17/19 Levothyroxine Sodium (LEVOTHYROXINE SODIUM) 50 Mcg Tablet, 1 TAB PO QDAY, #90 TAB 3 Refills Prov:AYUSH MORALES MD 05/17/19 Sildenafil Citrate (VIAGRA) 100 Mg Tablet, 100 MG PO QDAY PRN for sex, #9 TAB 4 Refills Prov:AYUSH MORALES MD 04/17/18 Reported Medications Docusate Sodium (COLACE) 100 Mg Capsule, 1-2 TAB PO QDAY, CAPSULE 05/13/19 Ranitidine Hcl (ZANTAC 75) 75 Mg Tablet, 1 TAB PO QHS PRN for GERD 04/03/17 Multivitamin (MULTIVITAMINS) 1 Each Capsule, 1 EACH PO QDAY, CAPSULE 03/17/16 Cholecalciferol (Vitamin D3) (VITAMIN D3) 1,000 Unit Tablet, 1 TAB PO QDAY 11/03/14 Discontinued Reported Medications Ferrous Sulfate (FERROUS SULFATE) 324 Mg Tablet., 324 MG PO QODAY 05/13/19 Allergies: Uncoded Allergies: HAYFEVER (Allergy, Mild, UNKNOWN, 03/27/12) Patient History: FH: CHF (congestive heart failure) MOTHER, , Age:76 FH: Crohn's disease SISTER FH: lung cancer FATHER, , Age:86 FH: peptic ulcer disease FATHER, , Age:86 FH: uterine cancer MOTHER, , Age:76 Hx Smoking: No Smoking Status: Never Smoker Caffeine Intake: Coffee, Tea Caffeine/Cups Per Day: 2-3 CUPS A DAY Hx Alcohol Use: No Hx Substance Use Disorder: No Social Drug Use: Never Review of Systems All Systems Reviewed/Normal: Yes, Except as Noted Musculoskeletal: Impaired Mobility (Surgery related. ) Exam Vital Signs Vital Signs Date Time Temp Pulse Resp B/P (MAP) Pulse Ox O2 Delivery O2 Flow Rate FiO2 05/27/19 14:14 59 135/72 (93) 92 05/27/19 11:03 97.6 18 05/27/19 06:13 Room Air General Appearance: Alert, Awake, No Acute Distress Neuro: No Gross deficits Cardiovascular: Regular Rate and Rhythm Respiratory: No Respiratory Distress, Clear to Auscultation GI: Abd Soft and Non-Tender Psych: Alert & Oriented X3, Appropriate Mood & Affect Assessment and Plan Problems: (1) Status post left knee replacement Assessment & Plan: Surgical replacement by Dr. Qureshi on 05/27. No reported surgical concerns or issues. Less than 200cc EBL. He will be on Aspirin for anticoagulation starting on 05/28. PT/OT will follow. Pain management per Ortho. He is requiring Oxygen at this time; his baseline is Room Air. (2) Hypothyroidism Status: Acute Assessment & Plan: Will continue chronic management with Levothyroxine 50mcg. (3) GERD (gastroesophageal reflux disease) Assessment & Plan: Takes Lansoprazole 30mg Qday @ home. Will manage with Protonix during admission. Venous Thromboembolism Antithrombotics Is Pt On Any Antithrombotics?: No Exam Sepsis Risk: No Definite Risk BOBBI PAULSON May 27, 2019 15:19
[2019-05-27] MEDS ORDERED: NS(*) 0.9% 500 ML BAG 500 ML IV PRN (16:30)
[2019-05-27] MEDS: ceFAZolin(*) 2GM/D5W 50ML 50 ML IVPB SCH (16:44)
[2019-05-27] MEDS: ACETAMINOPHEN 500 MG TAB PO SCH (17:01)
[2019-05-27] MEDS ORDERED: DIAZEPAM 5 MG TAB PO PRN (17:10)
[2019-05-28] MEDS ORDERED: RANITIDINE HCL 150 MG TAB PO PRN (00:05)
[2019-05-28] MEDS: ACETAMINOPHEN 500 MG TAB PO SCH ×4 (00:29→23:47)
[2019-05-28] MEDS: IBUPROFEN 200 MG TAB PO SCH ×5 (00:29→23:47)
[2019-05-28] MEDS: ceFAZolin(*) 2GM/D5W 50ML 50 ML IVPB SCH ×2 (00:30→07:44)
[2019-05-28 04:05] VITALS: BP 121/60
[2019-05-28] MEDS: LEVOTHYROXINE SOD 0.05 MG TAB PO SCH (06:18)
[2019-05-28 07:07] VITALS: BP 140/72
[2019-05-28 09:29] VITALS: Ht 175.3 cm; Wt 110.7 kg
--- NOTE | 2019-05-28 09:57 | NUR ---
Physical Therapy Impression Pt progressing well with functional mobility. Christy for bed mobility. SBA for transfers and ambulation x250' with RW. PT instruction for supine LE ther-ex with emphasis on quad contraction and knee extension. PT instruction for CPM use and adjustment of ROM settings. Plan to address stairs in PM. COntinue with POC Physical Therapy Goals 1: Pt to complete bed mobility with Gabi 2: pt to complete transfers with SBA and RW 3: pt to ambulate 150' with SBA and RW 4: Pt to asc/desc 4 stairs with railing and CGA 5: Pt to be I) with use of CPM Patient's Goals
[2019-05-28] MEDS: ASPIRIN 325 MG ENTERIC COATED PO SCH (10:33)
[2019-05-28] MEDS: LANSOPRAZOLE 15 MG CAPCR PO SCH (10:33)
[2019-05-28 11:29] VITALS: BP 148/73
[2019-05-28] MEDS: traMADol 50 MG TAB PO PRN ×2 (12:00→21:53)
[2019-05-28] MEDS: DOCUSATE SODIUM 100 MG CAP PO SCH ×2 (12:01→21:07)
--- NOTE | 2019-05-28 13:53 | Hospitalist Progress Note ---
Subjective Progress Notes Subjective No acute events overnight. He has minimal pain complaints. Working well with PT, ambulating in the halls and to the bathroom. Patient Complains of: Neurological: No: Confusion, Weakness Cardiovascular: No: Chest Pain, Palpitations Respiratory: No: Cough, Congestion, Shortness of Breath Gastrointestinal: No Nausea, No Vomiting Musculoskeletal: No: Pain Physical Exam Vital Signs Date Time Temp Pulse Resp B/P (MAP) Pulse Ox O2 Delivery O2 Flow Rate FiO2 05/28/19 11:29 98.6 75 20 148/73 (98) 89 Room Air 05/28/19 07:07 1.0 Intake and Output 05/28/19 01:03 Intake Total 2000 ml Output Total 20 ml Balance 1980 ml Intake Oral 600 ml IV Total 1400 ml Output Estimated Blood Loss 20 ml # Voids 1 General Appearance: Alert, Awake, No Acute Distress Neuro: No Gross deficits Cardiovascular: Regular Rate and Rhythm Respiratory: No Respiratory Distress, Clear to Auscultation Psych: Alert & Oriented X3, Appropriate Mood & Affect Assessment and Plan Problems: (1) Status post left knee replacement Assessment & Plan: Surgical replacement by Dr. Qureshi on 05/27. No reported surgical concerns or issues. Less than 200cc EBL. He will be on Aspirin for anticoagulation starting on 05/28. PT/OT will follow. Pain management per Ortho. He is requiring Oxygen at this time; his baseline is Room Air. Will titrate O2 down. (2) Hypothyroidism Status: Acute Assessment & Plan: Will continue chronic management with Levothyroxine 50mcg. (3) GERD (gastroesophageal reflux disease) Assessment & Plan: Takes Lansoprazole 30mg Qday @ home. Will manage with Protonix during admission. Exam Sepsis Risk: No Definite Risk BOBBI PAULSON May 28, 2019 13:53
--- NOTE | 2019-05-28 14:09 | NUR ---
Physical Therapy Impression Pt has met PT goals and is safe to d/c home from a mobility stand point when medically appropriate. Pt demonstrates Wilfredo for bed mobility, transfers and ambulation x200' with use of RW. PT instruction for asc/desc 7 stairs with L) railing descending and step to gait, pt completed with SBA. Pt is I) with use of CPM and has OP PT appt scheduled. Physical Therapy Goals 1: Pt to complete bed mobility with Gabi 2: pt to complete transfers with SBA and RW 3: pt to ambulate 150' with SBA and RW 4: Pt to asc/desc 4 stairs with railing and CGA 5: Pt to be I) with use of CPM Patient's Goals
[2019-05-28 14:41] VITALS: BP 136/74
[2019-05-28 19:09] VITALS: BP 142/73
[2019-05-28 23:47] VITALS: BP 152/69
[2019-05-29 04:08] VITALS: BP 142/76
[2019-05-29] MEDS: IBUPROFEN 200 MG TAB PO SCH (06:14)
[2019-05-29] MEDS: LEVOTHYROXINE SOD 0.05 MG TAB PO SCH (06:14)
[2019-05-29 07:17] VITALS: BP 153/80
[2019-05-29] MEDS: LANSOPRAZOLE 15 MG CAPCR PO SCH (08:36)
[2019-05-29] MEDS: ACETAMINOPHEN 500 MG TAB PO SCH (08:36)
[2019-05-29] MEDS: DOCUSATE SODIUM 100 MG CAP PO SCH (08:36)
[2019-05-29] MEDS: ASPIRIN 325 MG ENTERIC COATED PO SCH (08:37)
[2019-05-29] MEDS: traMADol 50 MG TAB PO PRN (08:41)
[2019-05-29] MEDS ORDERED: ASPI-764 PO (09:54)
--- NOTE | 2019-05-29 10:48 | NUR ---
Physical Therapy Impression Pt seen with nursing. Pt' voices no PT concerns at this time. Pt is safe for DC when medically appropriate. Physical Therapy Goals 1: Pt to complete bed mobility with Gabi 2: pt to complete transfers with SBA and RW 3: pt to ambulate 150' with SBA and RW 4: Pt to asc/desc 4 stairs with railing and CGA 5: Pt to be I) with use of CPM Patient's Goals
--- NOTE | 2019-05-29 11:14 | Hospitalist Progress Note ---
Subjective Progress Notes Subjective He was admitted s/p knee replacement. He has no complaints this morning. He had no acute events overnight. Patient Complains of: Cardiovascular: No: Chest Pain Respiratory: No: Shortness of Breath Physical Exam Vital Signs Date Time Temp Pulse Resp B/P (MAP) Pulse Ox O2 Delivery O2 Flow Rate FiO2 05/29/19 08:30 Room Air 05/29/19 07:17 98.7 73 16 153/80 (104) 90 05/28/19 07:07 1.0 Intake and Output 05/29/19 01:04 Intake Total 705 ml Balance 705 ml Intake Oral 640 ml IV Total 65 ml # Voids 6 # Bowel Movements 5 General Appearance: Alert, Awake, No Acute Distress, Afebrile Neuro: No Gross deficits Cardiovascular: Regular Rate and Rhythm Respiratory: No Respiratory Distress, Clear to Auscultation GI: Soft and Non-Tender Psych: Alert & Oriented X3, Appropriate Mood & Affect Assessment and Plan Problems: (1) Status post left knee replacement Assessment & Plan: Surgical replacement by Dr. Qureshi on 05/27. No reported surgical concerns or issues. Less than 200cc EBL. He will be on Aspirin for anticoagulation starting on 05/28. PT/OT will follow. Pain management per Ortho. (2) Hypothyroidism Status: Acute Assessment & Plan: Will continue chronic management with Levothyroxine 50mcg. (3) GERD (gastroesophageal reflux disease) Assessment & Plan: Takes Lansoprazole 30mg Qday @ home. Will manage with Protonix during admission. Exam Sepsis Risk: No Definite Risk SRINIVASAN VILLAFANA May 29, 2019 11:14
== END 2019-05-29 09:19 | disposition home or self-care (01) ==
LOC: OR 04:05 → OBSVTOIN 11:00 → UNDOADMOB 11:00 → INTOOBSV 11:00 → MED 11:00 → UNDODISOB 05-29 10:30
PROVIDERS: ADMIT Orthopaedic Surgery; ATTEND Orthopaedic Surgery
DX: M17.12 Unilateral primary osteoarthritis, left knee (principal); M21.162 Varus deformity, not elsewhere classified, left knee; I10 Essential (primary) hypertension; D64.9 Anemia, unspecified; E03.9 Hypothyroidism, unspecified; K21.9 Gastro-esophageal reflux disease without esophagitis
CPT/HCPCS: 27447; 36415; 73560; 85610; 86850; 86900; 86901; 97116; 97161; 97530; A9270; C1713; C1776; G0378; J1100; J1170; J2250; J2405; J2704; J2795; J3010; J7040; J7060; J0690